=== PATIENT | female | born 1990 | race African-American/Black ===

== ENCOUNTER 2016-12-06 17:04 | Emergency (ER) | payer MEDICAID ==
[~2016-12-06 17:04] MED LIST: AMOXICILLIN875 M1 PO; CLEOCIN HCL150 M1 PO; TOBRAMYCIN-DEXAM5 M2 OP; VOLTAREN100 G1 TP
[2016-12-06] MEDS ORDERED: HYDROCODON-ACE1 EA16 PO (17:28)
[2016-12-06] MEDS ORDERED: FLAGYL500 M1 PO (17:28)
[2016-12-06 17:55] LABS: BASO % 0.3 % (0-2); EOS % 3.1 % (0-7); EOSINOPHIL ABSOLUTE COUNT 0.2 tho/cmm (0.0-0.7); HCT-HEMATOCRIT 35.5 % (34.0-49.0); HGB-HEMOGLOBIN 11.5 gm/dl (12.0-15.5); IMMATURE GRANULOCYTES ABSOLUTE 0.01 tho/cmm (0-0.03); IMMATURE GRANULOCYTES PERCENT 0.1 % (0-0.3); LYMPH % 35.6 % (20-45); LYMPH ABSOLUTE COUNT 2.6 tho/cmm (0.8-4.5); MCH (MEAN CORPUSCULAR HGB) 28.9 pg (28.0-32.0); MCHC MEAN CORPUSCULAR HGB CONC 32.4 % (32.0-36.0); MCV (MEAN CELL VOLUME) 89.2 fl (82.0-96.0); MONO % 5.7 % (0-12); MONOCYTE ABSOLUTE COUNT 0.4 tho/cmm (0.0-1.2); NEUTROPHIL ABSOLUTE COUNT 4.1 tho/cmm (1.6-8.0); NEUTROPHIL-AUTOMATED 4.1 tho/cmm (1.6-8.0); NEUTROPHILS % 55.2 % (40-80); PLATELET COUNT 263 tho/cmm (150-450); RED BLOOD COUNT 3.98 mil/cmm (4.00-5.20); RED CELL DISTRIBUTION WIDTH 12.2 % (12.4-16.4); WHITE BLOOD COUNT 7.4 tho/cmm (4.0-10.0)
== END 2016-12-06 19:40 ==
LOC: EDMED 17:04
PROVIDERS: Emergency Medicine
DX: R10.31 Right lower quadrant pain (principal); R11.2 Nausea with vomiting, unspecified
CPT/HCPCS: J1170; J1885; J2405; J7030